=== PATIENT | female | born 1955 | race Caucasian/White ===

== ENCOUNTER 2018-12-28 06:22 | Day surgery (SDC) | payer BC, OTHER ==
[2018-12-27 11:23] VITALS: BMI 29.9
[2018-12-28] MEDS ORDERED: ROPIVACAINE HCL 0.5% 30ML VIAL ONE (07:21)
[2018-12-28] MEDS ORDERED: ePHEDrine SULFATE 50 MG/1 ML AMPULE ONE (07:30)
[2018-12-28] MEDS ORDERED: SUCCINYLCHOLINE CHLORIDE 200 MG/10 ML VIAL ONE (07:31)
[2018-12-28] MEDS ORDERED: PROPOFOL 20 ML ONE ×3 (07:31)
[2018-12-28] MEDS ORDERED: MIDAZOLAM HCL 2 MG/2 ML SINGLE DOSE VIAL ONE ×2 (07:40)
--- NOTE | 2018-12-28 07:59 | HP ---
[facility] - Chief Complaint Chief Complaint: right shoulder pain - Past Medical History Allergies/Adverse Reactions: Allergies Allergy/AdvReac Type Severity Reaction Status Date / Time NSAIDS (Non-Steroidal Allergy Swelling Verified 12/28/18 06:51 Anti-Inflamma - Current Medications Current Medications: Home Medications Medication Instructions Recorded Levothyroxine [Synthroid -] 75 mcg PO HS 12/22/14 Simvastatin [Zocor -] 40 mg PO DAILY 12/22/14 metFORMIN HCL [Glucophage -] 750 mg PO BID 12/22/14 Amitriptyline HCl [Elavil -] 100 mg PO HS 12/27/18 Tramadol HCl 100 mg PO PRN 12/27/18 [facility] Physical Exam - Physical Examination Vital Signs: Vital Signs Period Temp Pulse Resp BP Sys/Shaffer Pulse Ox Last 24 Hr 98.0 F 75 16 118/73 98 General Appearance: Well Nourished, Well Developed, Alert & Oriented x3 ENT: Clear Lung: Normal air movement Heart: Regular rate & rhythm Extremities: Other (right shoulder- + ttp, decr rom, + neer, + wade, + empty can, nvi MRi + rct) Neurological: Intact, Alert, Oriented [facility] Impression/Plan - Impression/Plan Impression: right shoulder rct Operative Procedure: right shoulder arthroscopy with AIYANA VAZQUEZ Date to be Performed: 12/28/18
[2018-12-28] MEDS ORDERED: ceFAZolin SODIUM 1 GM VIAL IVPB ONE (08:18)
[2018-12-28] MEDS ORDERED: ONDANSETRON 4 MG/2 ML VIAL IVPUSH PRN (08:53)
[2018-12-28] MEDS ORDERED: oxyCODONE HCL 5 MG TABLET PO PRN (08:53)
--- NOTE | 2018-12-28 08:57 | OP ---
Operative Note - Note: Operative Date: 12/28/18 ([facility]) Pre-Operative Diagnosis: right shoulder rct Operation: right shoulder arthroscopy with RCR, SAD Implants: 2 arthrex swivelocks Post-Operative Diagnosis: Same as Pre-op Surgeon: Anjel Quigley Kettle Fry Cook Operator: [place] Anesthesiologist/RESEARCH HOME ECONOMIST: Albino Gamez Anesthesia: General, Local Specimens Removed: shavings Estimated Blood Loss (mls): 5 Operative Report Dictated: Yes
[2018-12-28] MEDS ORDERED: LACTATED RINGERS SOLUTION 1,000 ML IV SCH (09:00)
--- NOTE | 2018-12-28 09:25 | OP ---
DATE OF OPERATION: 12/28/2018 PREOPERATIVE DIAGNOSIS: Right rotator cuff tear. POSTOPERATIVE DIAGNOSIS: Right rotator cuff tear. PROCEDURE: Arthroscopy, right shoulder, with subacromial decompression and rotator cuff repair. SURGICAL ATTENDING: Anjel Quigley MD LINSEED OIL REFINER: ELISHA Gomes ANESTHESIA: Regional and general. CLOSURE: SutureTape and 2 bioabsorbable SwiveLocks, 3-0 nylon for skin. ESTIMATED BLOOD LOSS: Negligible. COMPLICATIONS: None. CONDITION: To recovery room in stable condition. DESCRIPTION OF OPERATIVE PROCEDURE: Patient was taken to the operating room on December 28, 2018. Regional and general anesthesia was administered by the anesthesiologist. IV Kefzol was administered prophylactically prior to the case. The right shoulder area was prepped and draped in the usual sterile fashion with the patient in the beach-chair position. First, a diagnostic arthroscopy of the glenohumeral joint was performed. A posterior portal was made 2 fingerbreadths below the acromion, first with a 15 blade followed by a blunt trocar. Circumferential exam of the glenohumeral joint revealed the following: Some grade 2 changes central in the glenoid and superiorly in the humeral head. Rest of the articular cartilage appeared to be intact. Labrum intact circumferentially. The biceps and biceps anchor were intact. There were no loose bodies in the axillary pouch. The subscapularis was intact to its insertion. There was no undue synovitis inside the shoulder joint. The fluid was drained from the shulder, and trocar was removed. The posterior trocar was redirected in the subacromial space. Accessory lateral portal was made with a 15 blade followed by blunt trocar. Bursectomy in the subacromial space was performed using the ArthroCare device. The coracoacromial ligament was identified and detached off the undersurface of the acromion and was further debrided. Acromioplasty was then performed using the using the Acromionizer edy gaining sufficient height for the humeral head. Looking inferiorly, the humeral head and rotator cuff was visualized from the bursal side. The rotator cuff was found to be hanging on by a thread at the supraspinatus insertion region. Gentle probing revealed the tear at the rotator cuff. This was debrided using the shaver exposing the tear. The bone on the greater tuberosity was burred to stimulate bleeding bone, and all soft tissue in this region was debrided. Using the [employer] self-suture punch, two SutureTape sutures were placed in horizontal mattress fashion, one anteriorly and one posteriorly. They were fixated with SwiveLock anchors to the greater tuberosity achieving excellent fixation and matting down at the cuff tear to the greater tuberosity. Sutures were cut short. Range of motion revealed excellent stability of the repair and good height in the subacromial space. The fluid was drained from the shoulder. The portals were closed using 3-0 nylon. Sterile pressure dressing followed by shoulder mobilizer was applied. Patient awakened from anesthesia and transferred to the recovery room in stable condition. No complications. Estimated blood loss negligible. Zeynep [id number]
[2018-12-28 14:40] VITALS: BP 108/62; PULSE 75; TEMP 97.8
--- NOTE | 2018-12-31 15:42 | PATH ---
Surgical Pathology Report Patient Name: YOLANDA JAIMES [facility]. Rec. #: [id number] /Age/Gender: 1955 (Age: 63) / F Account: [id number] Location: [facility] SURGICAL Taken: 12/28/2018 Received: 12/28/2018 Reported: 12/31/2018 Physicians: Anjel Quigley M.D. Specimen(s) Received SHOULDER SHAVINGS Clinical History Right shoulder tear Final Diagnosis RIGHT SHOULDER SHAVINGS: FRAGMENTS OF BONE, SKELETAL MUSCLE, FIBROCARTILAGE AND SYNOVIAL TISSUE WITH FOCAL DEGENERATIVE CHANGE. Electronically Signed Nya Tan M.D. Gross Description Received in formalin, labeled "right shoulder shavings," is a 3.5 x 3.0 x 0.3 cm. aggregate of velázquez-yellow soft tissue fragments. A security representative portion is submitted in one cassette. /12/28/201812/28/2018
== END 2018-12-28 13:00 | disposition home or self-care (01) ==
LOC: JASU-SURG 06:22
PROVIDERS: ATTEND Orthopaedic Surgery
PROC: 0RNJ4ZZ Release Right Shoulder Joint, Percutaneous Endoscopic Approach (ICD-10-PCS; principal; 2018-12-28 08:00)
PROC: 0LQ14ZZ Repair Right Shoulder Tendon, Percutaneous Endoscopic Approach (ICD-10-PCS; 2018-12-28 08:00)
DX: M75.101 Unspecified rotator cuff tear or rupture of right shoulder, not specified as traumatic (principal)
CPT/HCPCS: 82962; 88304-TC; 94760